=== PATIENT | female | born 1955 | race Caucasian/White ===

== ENCOUNTER 2021-11-27 10:16 | Day surgery (SDC) | payer MEDICARE ==
[2021-11-27] MEDS ORDERED: Xylocaine 1% Vial 30 ML PF IJ ONE (10:17)
[2021-11-27] MEDS ORDERED: Depo-Medrol 40 MG/ML IM ONE (10:17)
[2021-11-27] MEDS ORDERED: Sodium Chloride 0.9(Preservative Free) 10 ML IJ ONE (10:17)
[2021-11-27] MEDS ORDERED: DIPRIVAN 200 MG/20 ML IV ONE (13:21)
[2021-11-27] MEDS ORDERED: Lactated Ringers 1,000 ML IV ONE (13:22)
--- NOTE | 2021-11-27 16:30 | XRAY ---
Indication: Lumbar ALEXIS. Intraoperative fluoroscopy provided for 11 seconds. 2 digital spot image submitted for interpretation demonstrates midline posterior needle tip projecting just posterior to lumbosacral interspace. Small amount of contrast injected for needle tip placement. Correlate with intraoperative findings/report.
--- NOTE | 2021-11-27 16:46 | XRAY ---
11 seconds of fluoroscopy was used in surgery for a lumbar ALEXIS.
== END 2021-11-27 13:45 | disposition home or self-care (01) ==
LOC: SDC-PAIN 10:16
PROVIDERS: ATTEND Psychiatry & Neurology Pain Medicine
DX: M54.16 Radiculopathy, lumbar region (principal)
CPT/HCPCS: 62323; 72100; 77003; J1030; J2001; J2704; Q9966